=== PATIENT | male | born 1955 | race African-American/Black ===

== ENCOUNTER 2017-03-30 18:59 | Emergency (ER) | payer OTHER ==
--- NOTE | ~2017-03-30 | EKG ---
PATIENT: GONZÁLEZ YBARRA UNIT #: [id number] Ventricular Rate: 71 BPM Atrial Rate: 71 BPM P-R Interval: 154 ms QRS Duration: 82 ms Q-T Interval: 376 ms QTC Calculation(Bezet): 408 ms P [place]: 70 degrees Calculated R [place]: 56 degrees Calculated T [place]: 37 degrees Diagnosis Line: Normal sinus rhythm Diagnosis Line: Normal ECG Diagnosis Line: When compared with ECG of 26-OCT-2016 12:32, Diagnosis Line: No significant change was found Diagnosis Line: Confirmed by NATHANIEL GARZA MD ([id number]) on 04/02/2017 Diagnosis Line: 9:42:01 AM INTERPRETING MD: KAYLA BRANTLEY
[2017-03-30 19:07] LABS: BASOPHIL% 0.4 % (0-2.5); EOSINOPHIL% 1.2 % (0.0-7.0); HEMATOCRIT 37.6 % (38.0-50.0); HEMOGLOBIN 12.5 gm/dL (13.0-16.0); LYMPHOCYTE# 0.6 X10e3 (1.0-3.5); LYMPHOCYTE% 20.7 % (17.0-45.0); MEAN CELL VOLUME 102.1 FL (83-96); MEAN CORPUSCULAR HEMOGLOBIN 33.8 PG (28-34); MEAN CORPUSCULAR HGB CONC 33.1 g/dL (30-36); MEAN PLATELET VOLUME 9.9 FL (6.5-11.5); MONOCYTE# 0.1 X10e3 (0-1.0); MONOCYTE% 4.6 % (3.0-12.0); NEUTROPHIL# 2.3 X10e3 (1.5-7.1); NEUTROPHIL% 73.1 % (40-75); PLATELET COUNT 132 X10e3 (140-420); RED BLOOD COUNT 3.69 X10e (3.90-5.60); RED CELL DISTRIBUTION WIDTH 13.1 % (11.0-15.5); WHITE BLOOD COUNT 3.1 X10e3 (4.0-10.5)
[2017-03-30 19:08] LABS: DIFF IND NO
[2017-03-30 19:12] LABS: URINE SOURCE CLEAN CATCH
[2017-03-30 19:20] LABS: URINE APPEARANCE CLEAR; URINE BILIRUBIN NEG (NEG); URINE BLOOD NEG (NEG); URINE COLOR YELLOW; URINE GLUCOSE >1000 MG/DL (NEG); URINE KETONE TRACE (NEG); URINE LEUKOCYTE ESTERASE NEG (NEG); URINE NITRATE NEG (NEG); URINE PROTEIN NEG (NEG); URINE SPECIFIC GRAVITY 1.027 (1.003-1.035); URINE UROBILINOGEN 0.2 MG/DL (NEG)
[2017-03-30 19:23] LABS: POC - CKMB 3.2 ng/mL (0.0-7.9); POC - TROPONIN <0.05 ng/mL (<=0.05)
[2017-03-30 19:24] LABS: CULTURE INDICATED? NO
[2017-03-30 19:34] LABS: ALBUMIN SERUM 4.1 g/dL (3.5-5.0); BILIRUBIN,TOTAL 0.6 mg/dL (0.2-2.0); BUN/CREATININE RATIO 16.07; CALCIUM SERUM 9.4 mg/dL (8.4-10.2); CREATININE SERUM 2.8 mg/dL (0.6-1.4); POTASSIUM 5.4 mmol/L (3.5-5.1); PROTEIN TOTAL SERUM 7.3 g/dL (6.0-8.3)
[2017-03-30 22:27] LABS: BUN/CREATININE RATIO 18.75; CALCIUM SERUM 9.3 mg/dL (8.4-10.2); CREATININE SERUM 2.4 mg/dL (0.6-1.4); GLOM FILT RATE Estimated 32.5 mL/min (>60); POTASSIUM 4.3 mmol/L (3.5-5.1)
== END 2017-03-30 23:25 | disposition home or self-care (01) ==
LOC: CED 18:59
PROVIDERS: Emergency Medicine
DX: E11.65 Type 2 diabetes mellitus with hyperglycemia (principal); E11.22 Type 2 diabetes mellitus with diabetic chronic kidney disease; I12.9 Hypertensive chronic kidney disease with stage 1 through stage 4 chronic kidney disease, or unspecified chronic kidney disease; N18.9 Chronic kidney disease, unspecified; F17.200 Nicotine dependence, unspecified, uncomplicated
CPT/HCPCS: 36415; 80048; 80053; 81003; 82553; 82947; 84484; 85025; 93005; 96361; 96374; 99284